=== PATIENT | male | born 1990 | race Caucasian/White ===

== ENCOUNTER 2024-06-04 18:11 | Emergency (ER) | payer OTHER, SELFPAY ==
[2024-06-04 18:29] VITALS: BP 151/94
[2024-06-04 18:57] LABS: % Basophils 0.4 % (0-2); % Eosinophils 4.7 % (0-6); % Immature Granulocytes 0.4 % (0-0.5); % Lymphocytes 17.8 % (20.5-51.1); % Monocytes 8.7 % (1.7-9.3); Absolute Eosinophils 0.3 10^3/uL (0-0.7); Absolute Lymphocytes 1.2 10^3/uL (1.2-3.4); Absolute Monocytes 0.6 10^3/uL (0.1-0.6); Absolute Neutrophils 4.6 10^3/uL (1.4-6.5); Hematocrit 41.8 % (39.0-52.0); Mean Corp Hgb Conc. 35.9 g/dL (33.0-37.0); Mean Corpuscular Hgb 30.7 pg (27.0-31.0); Mean Corpuscular Volume 85.7 fL (80.0-94.0); Mean Platelet Volume 10.1 fL (7.4-10.4); Nucleated Red Blood Cells % 0 % (-); Platelet Count 214 10^3/uL (130-400); Red Blood Cell Count 4.88 10^6/uL (4.70-6.10); Red Cell Dist. Width 11.9 % (11.5-14.5); White Blood Cell Count 6.8 10^3/uL (4.8-10.8)
[2024-06-04 19:10] LABS: ALT (SGPT) 52 U/L (0-50); AST (SGOT) 60 U/L (17-59); Albumin 4.8 g/dl (3.5-5.0); Alkaline Phosphatase 140 U/L (38-126); Blood Urea Nitrogen 11 mg/dl (9-20); Calcium 9.4 mg/dl (8.4-10.2); Carbon Dioxide 24 mmol/L (22-30); Chloride 98 mmol/L (98-107); Glucose 101 mg/dl (70-99); Potassium 3.9 mmol/L (3.5-5.1); Sodium 132 mmol/L (135-145); Total Bilirubin 1.1 mg/dl (0.2-1.3); Total Protein 7.8 g/dl (6.3-8.2); eGFR > 60.00
--- NOTE | 2024-06-04 20:07 | ED.GENMED ---
History of Present Illness
General
Chief Complaint: Esophageal Problem
Source: patient
Time Seen by Provider: 06/04/24 19:55
History of Present Illness
History of Present Illness:
34-year-old male presents to the emergency room complaining of difficulty swallowing. Patient states that he ate a piece of steak a couple weeks ago that felt like it became stuck. He was eventually able to feel better after drinking a lot of
fluid and gagging regurgitating. Since then however he feels like he cannot eat normal food. When he drinks liquids it feels like it is a struggle for her to go down. He sometimes does regurgitate liquids. He is tolerating his secretions. Again
2 days ago he was trying to eat solid food and it became 'stuck'. He did regurgitate some of the food and was again able to tolerate some liquids. He denies having issues with reflux or indigestion.
Phy Exam
Physical Exam
Physical Exam:
General: Awake, Alert, Oriented X3. No acute distress.
Vitals: unremarkable
Head: Atraumatic
Eyes: Pupils equal, EOMI
Throat: Airway intact, no exudates
Neck: Trachea midline
Lungs: Clear and equal b/l
Heart: Regular rate, no murmurs
Abd: Soft, Nontender, No pulsatile mass
Neuro: Nonfocal
Skin: Warm, dry, no rash
Extremities: pulses equal b/l, no edema
Course
Orders/Labs/Results
Orders:
Orders
06/04/24 18:44
Complete Blood Count/With Diff Urgent
Comprehensive Metabolic Panel Urgent
06/04/24 20:06
Esoph [RF Esophagus-Single Contrast] Urgent
Comment:
Reason For Exam: dysphagia, suspected partial obst from food impact
Abnormal Lab Results
06/04/24
18:44
Lymphocytes % 17.8 L %
(20.5-51.1)
Sodium 132 L mmol/L
(135-145)
Glucose 101 H mg/dl
(70-99)
AST 60 H U/L
(17-59)
ALT 52 H U/L
(0-50)
Alkaline Phosphatase 140 H U/L
(38-126)
06/04/24 18:44
06/04/24 18:44
Vital Signs
Initial and Last Documented VS:
Initial Vital Signs
Temp Pulse Resp BP Pulse Ox
98.3 F 91 20 151/94 98
06/04/24 18:29 06/04/24 18:29 06/04/24 18:29 06/04/24 18:29 06/04/24 18:29
Last Documented Vital Signs
Temp Pulse Resp BP Pulse Ox
98.3 F 82 16 148/95 97
06/04/24 18:29 06/04/24 21:30 06/04/24 21:30 06/04/24 21:30 06/04/24 21:30
MDM/Problems Addressed
Differential Diagnosis Includes:
Partial esophageal obstruction from impacted food bolus, dysmotility of the esophagus, GERD, stricture
MDM/Problems Addressed:
Patient describes significant symptoms when he attempts to eat. Esophagram obtained which does not show any evidence of obstruction partial or complete. Will start the patient on a proton pump inhibitor. Close GI follow-up. I left a message for
the GI senior [employer] [place] text account to see if they can facilitate a near-term appointment
*Radiology
Radiology exam reviewed: radiology read reviewed
*Critical Care Note
Total Time (30-74mins, 75-104mins- exclusive of procedures): Not Applicable
ED Attending Note
-
Portions of this chart may have been created with voice recognition software.� Occasional wrong word or��sound alike� substitutions may have occurred due to the inherent limitations of voice recognition software.
Discharge Plan
Departure
Patient Disposition: Home (Routine Discharge)
Date of Disposition: 06/04/24
Time of Disposition: 21:15
Patient with high blood pressure during this ER visit?: No
Condition: Good
Discharge Problem:
Dysphagia
Instructions: Dysphagia
Prescriptions:
New
pantoprazole [Protonix] 40 mg tablet,delayed release (DR/EC)
40 mg PO DAILY Qty: 30 0RF
Referrals:
Lou Curran DO [Active] -
Interventions
Interventions:
*Risk Screen - Suicide Last Done: 06/04/24 18:29
*General Assessment Last Done: 06/04/24 20:46
*Neglect/Abuse Screening Last Done: 06/04/24 18:29
*Nursing Disposition Last Done: 06/04/24 21:31
ED-EENT Assessment Last Done: 06/04/24 20:45
Discharge Date and Time
Discharge Date/Time: 06/04/24 21:31
Print Language: BURMESE
--- NOTE | 2024-06-04 20:23 | EDRN ---
Assumed patient care at 1999. Family at bedside. patient drinking from personal water bottle. MD Valdez at bedside to assess patient.
[2024-06-04 21:30] VITALS: BP 148/95
== END 2024-06-04 21:31 | disposition home or self-care (01) ==
LOC: EMR 18:11
PROVIDERS: Emergency Medicine; EMERGENCY PHYSICIAN Emergency Medicine
DX: R13.10 Dysphagia, unspecified (principal)
CPT/HCPCS: 99284; 74220; 80053; 85025

== ENCOUNTER 2024-06-06 06:19 | Day surgery (SDC) | payer OTHER, SELFPAY | END 2024-06-06 15:57 | disposition home or self-care (01) | LOC: GI 06:19 | PROVIDERS: ATTENDING PHYSICIAN Internal Medicine Gastroenterology | DX: R13.10 Dysphagia, unspecified (principal); R12 Heartburn; K22.89 Other specified disease of esophagus; K44.9 Diaphragmatic hernia without obstruction or gangrene; K31.89 Other diseases of stomach and duodenum; K29.50 Unspecified chronic gastritis without bleeding; K20.90 Esophagitis, unspecified without bleeding | CPT/HCPCS: 43239; 88305; 88342 ==